=== PATIENT | female | born 1985 | race Caucasian/White ===

== ENCOUNTER 2019-05-27 16:46 | Emergency (ER) | payer BC, OTHER ==
[~2019-05-27] VITALS: Ht 162.6 cm; Wt 139.7 kg
[2019-05-27] MEDS ORDERED: SODIUM CHLORIDE 0.9% 1000ML 1,000 ML IV SCH (17:12)
[2019-05-27] MEDS ORDERED: FAMOTIDINE 20 MG/2 ML VIAL IV STA (17:12)
[2019-05-27] MEDS ORDERED: METHYLPREDNISOLONE SOD SUCC 125 MG/2ML VIAL IV ONE (17:15)
[2019-05-27] MEDS ORDERED: METHYLPREDNISOLONE SOD SUCC 125 MG/2ML VIAL ONE (17:29)
[2019-05-27] MEDS ORDERED: SODIUM CHLORIDE 0.9% 500ML 500 ML ONE (17:29)
[2019-05-27] MEDS ORDERED: FAMOTIDINE 20 MG/2 ML VIAL IV ONE (17:30)
[2019-05-27 17:55] VITALS: BP 130/80
[2019-05-27] MEDS ORDERED: PREDNISONE20 MG PO (17:57)
== END 2019-05-27 17:58 | disposition home or self-care (01) ==
LOC: FSED 16:46
DX: L50.0 Allergic urticaria (principal)
CPT/HCPCS: 99283; J2930; J7040